=== PATIENT | female | born 1960 | race Caucasian/White ===

== ENCOUNTER 2024-12-18 06:52 | Day surgery (SDC) | payer OTHER, SELFPAY ==
[2024-12-12 08:19] VITALS: BMI 29.7
[2024-12-12 08:35] VITALS: BMI 29.7
--- NOTE | 2024-12-15 09:34 | HO.ANESPROP2 ---
HPI - Anesthesia Eval Consult details Narrative: 64yo F for Right Cataract Extraction IOL Insertion No previous cataract on record [facility] [place] Past Medical History Medical History (Updated 12/12/24 @ 08:35 by Nicole Flores RN) Lung mass Neuropathy Pre-diabetes Hypothyroid Elevated cholesterol Surgical History Surgical History (Updated 12/12/24 @ 08:17 by Nicloe Flores RN) Hx of arthroscopic knee surgery Hx of rotator cuff surgery Hx of unilateral oophorectomy Hx of excision of mass Hx of thyroidectomy Hx of bilateral salpingectomy Social History Social History (Updated 12/12/24 @ 08:18 by Nicole Flores RN) Are you a primary nonfarm animal caretaker to a significant other at home: No Do you presently have visiting nurse or other home services: No Patient Tobacco Use Status: Former Tobacco user Tobacco use type: Cigarette Use of substances other than those prescribed or required for medical reasons: No Have you been hit, kicked, punched, or otherwise hurt by someone within the past year? If so, by whom?: No Spiritual Healthcare Practices: no [facility] Healthcare Practices: no Cultural Healthcare Practices: no Are you DNR?: No Advance Directives Information Provided: Yes (as above noted) Advance Directives on File: No FDLMP: n/a Meds Allergies Allergy/AdvReac Type Severity Reaction Status Date / Time environmental allergies Allergy Unknown Unknown Verified 12/12/24 08:18 Home Medications ?Medication ?Instructions ?Recorded ?Confirmed ?Last Taken ?Type celecoxib 200 mg capsule 200 mg PO BID PRN Pain 12/12/24 12/12/24 Unknown History cholecalciferol (vitamin D3) 25 25 mcg PO DAILY 12/12/24 12/12/24 Unknown History mcg (1,000 unit) tablet (Vitamin D3) ezetimibe 10 mg tablet (Zetia) 10 mg PO QPM 12/12/24 12/12/24 Unknown History levothyroxine 125 mcg tablet 125 mcg PO QAM 12/12/24 12/12/24 Unknown History valacyclovir 500 mg tablet 500 mg PO DAILY PRN Cold Sores 12/12/24 12/12/24 Unknown History valsartan 80 1 tab PO QPM 12/12/24 12/12/24 Unknown History mg-hydrochlorothiazide 12.5 mg tablet Exam Height,Weight and Vital Signs: Height 5 ft 2.6 in Weight 75 kg Assessment and Plan Assessment Anesthesia Assessment: Chart Reviewed
[2024-12-18] MEDS: Ketorolac Tromethamine 0.5% Op 5 ML DROPS 1 DROP EYE-RIGHT ×3 (07:16→07:25)
[2024-12-18] MEDS: Lactated Ringers 500 ML 50 ML IV (07:16)
[2024-12-18] MEDS: Tetracaine HCl/PF 0.5% Oph Sol 4 ML DROPS 1 DROP EYE-RIGHT (07:16)
[2024-12-18] MEDS: Phenylephrine HCL 2.5% Oph SoL 2 ML BOTTLE 1 DROP EYE-RIGHT ×3 (07:17→07:25)
[2024-12-18] MEDS: Tropicamide 1 % Ophth Sol 3 ML BTL 1 DROP EYE-RIGHT ×3 (07:17→07:25)
[2024-12-18] MEDS: Cyclopentolate 1 % Ophth Sol 2 ML DRPBTL 1 DROP EYE-RIGHT ×3 (07:17→07:25)
[2024-12-18 07:28] VITALS: BP 134/73; PULSE 85; RESP 18; TEMP 36.7; O2SAT 98
--- NOTE | 2024-12-18 07:55 | P.CONAN_ITS ---
[facility] Past Medical History Medical History Lung mass Neuropathy Pre-diabetes Hypothyroid Elevated cholesterol Functional capacity: independent ambulation Patient : No Family History Family history of problems with anesthesia: No Surgical History Surgical History Hx of arthroscopic knee surgery Hx of rotator cuff surgery Hx of unilateral oophorectomy Hx of excision of mass Hx of thyroidectomy Hx of bilateral salpingectomy History of Problems with Anesthesia: No Social History Social History Are you a primary healthcare advisory services manager to a significant other at home: No Do you presently have visiting nurse or other home services: No Patient Tobacco Use Status: Former Tobacco user Tobacco use type: Cigarette Use of substances other than those prescribed or required for medical reasons: No Have you been hit, kicked, punched, or otherwise hurt by someone within the past year? If so, by whom?: No Spiritual Healthcare Practices: no [facility] Practices: no Cultural Healthcare Practices: no Are you DNR?: No Advance Directives Information Provided: Yes (as above noted) Advance Directives on File: No FDLMP: n/a Meds Allergies Allergy/AdvReac Type Severity Reaction Status Date / Time environmental allergies Allergy Unknown Unknown Verified 12/18/24 07:30 Active Medications: Current Medications Lactated Ringer's (Lr) 500 mls @ 50 mls/hr IV .Q10H KIRIT Stop: 12/18/24 16:59 Last Admin: 12/18/24 07:16 Dose: 50 mls/hr Povidone Iodine (Povidone Iodine 5 % Ophth Soln 30 Ml Bottle) 1 appl EYE-RIGHT PREOP PRN PRN Reason: Pre-Op Surgical Implant Prophy Home Medications ?Medication ?Instructions ?Recorded ?Confirmed ?Last Taken ?Type celecoxib 200 mg capsule 200 mg PO BID PRN Pain 12/12/24 12/12/24 Unknown History cholecalciferol (vitamin D3) 25 25 mcg PO DAILY 12/12/24 12/12/24 Unknown History mcg (1,000 unit) tablet (Vitamin D3) ezetimibe 10 mg tablet (Zetia) 10 mg PO QPM 12/12/24 12/12/24 Unknown History levothyroxine 125 mcg tablet 125 mcg PO QAM 12/12/24 12/12/24 12/18/24 History valacyclovir 500 mg tablet 500 mg PO DAILY PRN Cold Sores 12/12/24 12/12/24 Unknown History valsartan 80 1 tab PO QPM 12/12/24 12/12/24 Unknown History mg-hydrochlorothiazide 12.5 mg tablet Exam Height,Weight and Vital Signs: Height 5 ft 2.6 in Weight 75 kg Last Vital Signs Temp 98.1 F 12/18/24 07:28 Pulse 85 12/18/24 07:28 Resp 18 12/18/24 07:28 BP 134/73 12/18/24 07:28 Pulse Ox 98 12/18/24 07:28 O2 Del Method Room Air 12/18/24 07:28 Airway Mallampati Class: II TM Dist: >3cm Neck ROM: Full Heart: RRR Lungs: CTA Assessment and Plan Assessment Anesthesia Assessment: Anesthesia Plan Discussed and Smoking Cess. Discussed Final Anesthetic Review Family History of Problems with Anesthesia: No History of Problems with Anesthesia: No NPO: Yes ASA Class: II Final Preanesthetic Review: Meds/Allgs Chart Reviewed, Consent Obtained/Reviewed and Anes Risks/Benef Reviewed Patient Risk: Low Procedure Risk: Low Anesthetic Plan Anesthetic Plan: MAC: Disposition: Standard PACU
--- NOTE | 2024-12-18 08:06 | MHC.SHP ---
Pre-Procedural Eval Section A - 24 Hr Update-Section A only Date of Service: 12/18/24 The patient is an INPATIENT: No Changes since office visit: No Cold of Flu in the past 2 weeks, No New Medical Problems, No Changes in Medication and No Patient answered all questions The patient has been examined within 24 hours of the surgical procedure. The History & Physical has been completed within 30 days and I have reviewed it.: Yes Section B - Complete if H&P > 30 days Chief Complaint: Age-related nuclear cataract, right eye Allergies: Allergies Allergy/AdvReac Type Severity Reaction Status Date / Time environmental allergies Allergy Unknown Unknown Verified 12/18/24 07:30 Plan Diagnosis/Plan: Unchanged I have reviewed the history and physical and performed a pertinent physical examination on my patient. No changes have occurred unless specified. Time Spent With Patient Time: Total time managing care of this patient today ____ minutes.
--- NOTE | 2024-12-18 08:07 | P.PCNO_ITS ---
Ophthalmology Procedure Procedure Date of Service: 12/18/24 Ophthalmology Viscoelastic: Healon Duet Dual Pack Pro Ophthalmology Lenses: IOL Acrysof MP - MA60AC (18.5) Procedure Notes: PREOPERATIVE DIAGNOSIS: Decreased visual acuity right eye secondary to cataract POSTOPERATIVE DIAGNOSIS: Same PROCEDURE: Right cataract extraction with intraocular lens insertion SURGEON: Kwabena Pinedo M.D. ANESTHESIA: Topical/MAC ESTIMATED BLOOD LOSS: None COMPLICATIONS: None After obtaining informed consent, the patient was brought to the operating room suite and placed in the supine position. After adequate sedation per anesthesia, topical drops of Tetracaine were given to the right eye. The eye was then prepped and draped in the usual sterile fashion. The operating room microscope was then positioned over the operative eye and a lid speculum placed. A paracentesis was created. Viscoelastic was then instilled into the anterior chamber. A three plane incision was then created temporally, utilizing a 2.85 mm keratome. Capsulotomy forceps were then utilized to create a circular tear capsulotomy. Hydrodissection and hydrodelineation were carried out until adequate mobilization of the nucleus occurred. Phacoemulsification was then utilized to remove the dense central nu cleus followed by removal of the cortical material utilizing the automated aspiration irrigation unit. Viscoelastic was instilled into the posterior capsular bag followed by placement of a posterior chamber intraocular lens without difficulty. The residual Viscoelastic was then removed utilizing the automated IA machine. The wound was checked and found to be watertight. The patient tolerated the procedure well and the lid speculum was removed. Intracameral injection of Vigamox 0.1 mL followed by a subtenon injection of Kenalog-40 0.2 mL were administered. The patient will be seen in the a.m.
[2024-12-18 08:31] VITALS: BP 120/72; PULSE 74; RESP 16; TEMP 36.2; O2SAT 100
[2024-12-18 08:39] VITALS: BP 130/72; PULSE 72; RESP 16; TEMP 36.2; O2SAT 100
--- NOTE | 2024-12-18 09:13 | HO.POSTANES ---
Post Anesthesia Evaluation Post Anesthesia Evaluation Date of Service: 12/18/24 Vital Signs: Vital Signs Temp Pulse Resp BP Pulse Ox O2 Del Method 12/18/24 08:39 97.2 F 72 16 130/72 100 Room Air 12/18/24 08:31 97.2 F 74 16 120/72 100 Room Air 12/18/24 07:28 98.1 F 85 18 134/73 98 Room Air Anesthesia: Monitored Mental Status: Awake Pain Control: Satisfactory Nausea/Vomiting: None Hydration: Adequate Anesthesia-Related Issues: No Anes. Related Issues
== END 2024-12-18 08:49 | disposition home or self-care (01) ==
PROVIDERS: PCP Nurse Practitioner Family; Visit Provider Ophthalmology
PROC: (CPT 66985; principal; 2024-12-18 08:30)
DX: H25.11 Age-related nuclear cataract, right eye (principal); H52.4 Presbyopia; H18.413 Arcus senilis, bilateral; H43.393 Other vitreous opacities, bilateral; I10 Essential (primary) hypertension; E78.00 Pure hypercholesterolemia, unspecified; E05.00 Thyrotoxicosis with diffuse goiter without thyrotoxic crisis or storm; E03.9 Hypothyroidism, unspecified; R73.03 Prediabetes; E55.9 Vitamin D deficiency, unspecified; Z79.899 Other long term (current) drug therapy; Z98.890 Other specified postprocedural states
CPT/HCPCS: 66984; J2250; J3301; V2630

== ENCOUNTER 2025-01-01 06:37 | Day surgery (SDC) | payer OTHER, SELFPAY ==
[2024-12-12 08:38] VITALS: BMI 29.7
[2025-01-01 07:06] VITALS: BP 118/70; PULSE 77; RESP 16; TEMP 36.2; O2SAT 99
[2025-01-01] MEDS: Tetracaine HCl/PF 0.5% Oph Sol 4 ML DROPS 1 DROP EYE-LEFT (07:11)
[2025-01-01] MEDS: Cyclopentolate 1 % Ophth Sol 2 ML DRPBTL 1 DROP EYE-LEFT ×3 (07:13→07:19)
[2025-01-01] MEDS: Tropicamide 1 % Ophth Sol 3 ML BTL 1 DROP EYE-LEFT ×3 (07:13→07:20)
[2025-01-01] MEDS: Ketorolac Tromethamine 0.5% Op 5 ML DROPS 1 DROP EYE-LEFT ×3 (07:14→07:20)
[2025-01-01] MEDS: Phenylephrine HCL 2.5% Oph SoL 2 ML BOTTLE 1 DROP EYE-LEFT ×3 (07:15→07:21)
--- NOTE | 2025-01-01 07:18 | HO.ANESPROP2 ---
[facility] Past Medical History Medical History Lung mass Neuropathy Pre-diabetes Hypothyroid Elevated cholesterol Family History Family history of problems with anesthesia: No Surgical History Surgical History Hx of arthroscopic knee surgery Hx of rotator cuff surgery Hx of unilateral oophorectomy Hx of excision of mass Hx of thyroidectomy Hx of bilateral salpingectomy History of Problems with Anesthesia: No Social History Social History Are you a primary health care specialist to a significant other at home: No Do you presently have visiting nurse or other home services: No Patient Tobacco Use Status: Former Tobacco user Tobacco use type: Cigarette Use of substances other than those prescribed or required for medical reasons: No Have you been hit, kicked, punched, or otherwise hurt by someone within the past year? If so, by whom?: No Spiritual Healthcare Practices: no Denominational Healthcare Practices: no Cultural Healthcare Practices: no Are you DNR?: No Advance Directives Information Provided: Yes (as above noted) Advance Directives on File: No FDLMP: n/a Meds Allergies Allergy/AdvReac Type Severity Reaction Status Date / Time environmental allergies Allergy Unknown Unknown Verified 12/18/24 07:30 Active Medications: Current Medications Naloxone HCl (Naloxone Hcl 0.4 Mg/Ml Vial) 0.04 mg IVPUSH Q5M PRN PRN Reason: Excessive sedation or RR < 8 Povidone Iodine (Povidone Iodine 5 % Ophth Soln 30 Ml Bottle) 1 appl EYE-LEFT PREOP PRN PRN Reason: Pre-Op Surgical Implant Prophy Home Medications ?Medication ?Instructions ?Recorded ?Confirmed ?Last Taken ?Type celecoxib 200 mg capsule 200 mg PO BID PRN Pain 12/12/24 12/12/24 Unknown History cholecalciferol (vitamin D3) 25 25 mcg PO DAILY 12/12/24 12/12/24 Unknown History mcg (1,000 unit) tablet (Vitamin D3) ezetimibe 10 mg tablet (Zetia) 10 mg PO QPM 12/12/24 12/12/24 Unknown History levothyroxine 125 mcg tablet 125 mcg PO QAM 12/12/24 12/12/2412/18/25 History valacyclovir 500 mg tablet 500 mg PO DAILY PRN Cold Sores 12/12/24 12/12/24 Unknown History valsartan 80 1 tab PO QPM 12/12/24 12/12/24 Unknown History mg-hydrochlorothiazide 12.5 mg tablet Exam Height,Weight and Vital Signs: Height 5 ft 2.6 in Weight 75 kg Last Vital Signs Temp 97.2 F 01/01/25 07:06 Pulse 77 01/01/25 07:06 Resp 16 01/01/25 07:06 BP 118/70 01/01/25 07:06 Pulse Ox 99 01/01/25 07:06 O2 Del Method Room Air 01/01/25 07:06 Airway Mallampati Class: II TM Dist: >3cm Neck ROM: Full Heart: rrr Lungs: cta Assessment and Plan Assessment Anesthesia Assessment: Anesthesia Plan Discussed and Chart Reviewed Final Anesthetic Review Family History of Problems with Anesthesia: No History of Problems with Anesthesia: No NPO: Yes ASA Class: II Final Preanesthetic Review: No Changes in Pt Med Stat, Meds/Allgs Chart Reviewed and Consent Obtained/Reviewed Patient Risk: Low Procedure Risk: Low Anesthetic Plan Anesthetic Plan: MAC: Disposition: Standard PACU
[2025-01-01] MEDS: Lactated Ringers 500 ML 50 ML IV (07:25)
--- NOTE | 2025-01-01 08:17 | MHC.SHP ---
Pre-Procedural Eval Section A - 24 Hr Update-Section A only Date of Service: 01/01/25 The patient is an INPATIENT: No Changes since office visit: No Cold of Flu in the past 2 weeks, No New Medical Problems, No Changes in Medication and No Patient answered all questions The patient has been examined within 24 hours of the surgical procedure. The History & Physical has been completed within 30 days and I have reviewed it.: Yes Section B - Complete if H&P > 30 days Chief Complaint: Age-related nuclear cataract, left eye Allergies: Allergies Allergy/AdvReac Type Severity Reaction Status Date / Time environmental allergies Allergy Unknown Unknown Verified 12/18/24 07:30 Plan Diagnosis/Plan: Unchanged I have reviewed the history and physical and performed a pertinent physical examination on my patient. No changes have occurred unless specified. Time Spent With Patient Time: Total time managing care of this patient today ____ minutes.
--- NOTE | 2025-01-01 08:18 | HO.PNOPHT ---
Ophthalmology Procedure Procedure Date of Service: 01/01/25 Ophthalmology Viscoelastic: Healon Duet Dual Pack Pro Ophthalmology Lenses: IOL Acrysof MP - MA60AC (18.5) Procedure Notes: PREOPERATIVE DIAGNOSIS: Decreased visual acuity left eye secondary to cataract POSTOPERATIVE DIAGNOSIS: Same PROCEDURE: Left cataract extraction with intraocular lens insertion SURGEON: Kwabena Pinedo M.D. ANESTHESIA: Topical/MAC ESTIMATED BLOOD LOSS: None COMPLICATIONS: None After obtaining informed consent, the patient was brought to the operation room suite and placed in the supine position. After adequate sedation per anesthesia, topical drops of Tetracaine were given to the left eye. The eye was then prepped and draped in the usual sterile fashion. The operating room microscope was then positioned over the operative eye and a lid speculum placed. A paracentesis was created. Viscoelastic was then instilled into the anterior chamber. A three plane incision was then created temporally, utilizing a 2.85 mm keratome. Capsulotomy forceps were then utilized to create a circular tear capsulotomy. Hydrodissection and hydrodelineation were carried out until adequate mobilization of the nucleus occurred. Phacoemulsification was then utilized to remove the dense central nucleus followed by removal of the cortical material utilizing the automated aspiration irrigation unit. Viscoat elastic was instilled into the posterior capsular bag followed by placement of a posterior chamber intraocular lens without difficulty. The residual Viscoat elastic was then removed utilizing the automated IA machine. The wound was check and found to be watertight. The patient tolerated the procedure well and the lid speculum was removed. Intracameral injection of Vigamox 0.1 mL followed by a subtenon injection of Kenalog-40 0.2 mL were administered. The patient will be seen in the a.m.
[2025-01-01 08:41] VITALS: BP 114/61; PULSE 75; RESP 16; TEMP 36.2; O2SAT 100
== END 2025-01-01 08:50 | disposition home or self-care (01) ==
PROVIDERS: PCP Nurse Practitioner Family; Visit Provider Ophthalmology
PROC: (CPT 66985; principal; 2025-01-01 08:30)
DX: H25.12 Age-related nuclear cataract, left eye (principal); H52.4 Presbyopia; H18.413 Arcus senilis, bilateral; H43.393 Other vitreous opacities, bilateral; I10 Essential (primary) hypertension; E78.00 Pure hypercholesterolemia, unspecified; R73.03 Prediabetes; R91.8 Other nonspecific abnormal finding of lung field; E05.00 Thyrotoxicosis with diffuse goiter without thyrotoxic crisis or storm; E03.9 Hypothyroidism, unspecified; G57.90 Unspecified mononeuropathy of unspecified lower limb; G51.39 Clonic hemifacial spasm, unspecified; E55.9 Vitamin D deficiency, unspecified; Z79.899 Other long term (current) drug therapy; Z98.890 Other specified postprocedural states; Z87.891 Personal history of nicotine dependence
CPT/HCPCS: 66984; J2250; J3301; V2630

== ENCOUNTER 2025-05-28 09:43 | Outpatient (AMB) | payer OTHER, SELFPAY ==
--- NOTE | 2025-05-28 09:52 | A.OFFVIS_ITS ---
Vital Signs 05/28/25 10:07 05/28/25 10:07 BP 135/80 152/81 H Position Sitting Standing Pulse 89 97 Intake Visit Reasons: 6m Allergies environmental allergies Allergy (Unknown, Verified 05/28/25 09:55) Unknown lisinopril Allergy (Unknown, Verified 05/28/25 09:55) Unknown Medication List - Last Reconciled 05/28/25 by Whit Lobo CNP celecoxib 200 mg PO BID PRN cholecalciferol (vitamin D3) (Vitamin D3) 25 mcg PO DAILY ezetimibe (Zetia) 10 mg PO QPM levothyroxine 125 mcg PO QAM magnesium glycinate mg PO valacyclovir 500 mg PO DAILY PRN valsartan-hydrochlorothiazide 80-12.5 mg 1 tab PO QPM HPI Comments Details: A few weeks ago, she woke up during the night to use the bathroom and passed out, hitting the back of her head on dresser. She does not remember any warning or feeling of dizziness before passing out. She went to [place] [facility] where she had CT scan done that was apparently okay. She went back a few days later for headache and nausea, and was told she had a concussion. Headaches are better, but she was having some ongoing lightheadedness. No further falls or episodes of passing out. She recalls an episode where she passed out after waking up during the night to use the bathroom about 3 years ago, but fell forward that time. Sleep was not so good, waking every few hours to use the bathroom. She was taking valsartan-HCTZ around noontime. No episodes of left sided facial twitching in the last 6 months. She had 2 brief episodes of left sided facial twitches that happened when talking or laughing between 07/2024 - 11/2024. She had cough with lisinopril-HCTZ and was switched to valsartan-HCTZ, cough resolved. Taking celecoxib occasionally for arthritis pain. She?developed sudden onset of twitching in the left eye in summer 2023 which increased over 3 days to involve the whole left face which would continue twitching almost constantly and she felt a little dizzy. It has gotten a lot better after the first 3 weeks when it was happening every day or night. Now it occurs only occasionally and briefly. She had an MRI of the brain which shows a prominent to blood vessel adjacent to the left facial nerve entry zone. She has minimal microvascular changes and periventricular frontal white matter. [facility] Medical History Lung mass Neuropathy Pre-diabetes Hypothyroid Elevated cholesterol Surgical History Hx of arthroscopic knee surgery Hx of rotator cuff surgery Hx of unilateral oophorectomy Hx of excision of mass Hx of thyroidectomy Hx of bilateral salpingectomy Social History Are you a primary patient care assistant to a significant other at home: No Do you presently have visiting nurse or other home services: No Patient Tobacco Use Status: Former Tobacco user Tobacco use type: Cigarette Review of Systems Const Denies chills, Denies daytime sleepiness, Reports difficulty sleeping, Denies fatigue, Denies fever(s), Denies frequent falls, Denies headache(s), Denies increased appetite, Denies poor appetite, Denies snoring, Denies weakness, Denies weight gain and Denies weight loss Eyes Denies loss of vision ENT Denies vertigo, Denies dizziness, Denies headache(s) and Reports neck pain Card Denies chest pain at rest, Denies chest pain with activity, Denies syncope, Denies leg edema, Denies palpitations, Denies dyspnea and Denies dyspnea on exertion Resp Denies cough, Denies dyspnea, Denies dyspnea on exertion and Denies snoring GI Denies abdominal pain, Denies constipation, Denies heartburn, Denies diarrhea and Denies nausea Denies urinary frequency, Denies urinary incontinence and Denies urinary urgency Musc Denies abnormal gait, Reports back pain, Reports myalgias, Reports arthralgias, Reports neck pain, Denies numbness and Denies tingling Neuro Denies abnormal gait, Denies vertigo, Denies dizziness, Denies syncope, Denies frequent falls, Denies headache(s), Denies lack of coordination, Denies loss of vision, Denies memory loss, Denies numbness, Denies Other visual disturbances, Denies restless legs, Denies seizure-like activity, Denies tingling, Denies paresthesias, Denies tremor(s), Denies weakness and Reports other (left sided facial twitching) Psych Denies anxiety, Denies depression, Denies auditory hallucinations, Denies memory loss and Denies visual hallucinations Endo Denies fatigue and Denies palpitations Physical Exam Const Other: General Appearance:? normal, in no acute distress. Heart:? S1, S2 normal, no murmurs. Lungs:? clear anteriorly and posteriorly. Musculoskeletal:? normal. Extremities:? no edema. Psych:? alert, oriented, cognitive function intact, cooperative with exam. Neuro Other: Abnormal Neurological Findings:?none.?Unable to trigger left facial twitching today. Mental Status: alert and oriented X 3. Normal attention, orientation, memory, and affect. Cranial Nerves: Pupils are equal, round, and reactive to light. External ocular muscles are intact. Visual geronimo are full, no ptosis. Face is symmetrical, no facial weakness or droop. Facial sensations are normal. Tongue protrudes in midline. Palate elevates symmetrically. Shoulder shrugging is normal Motor Examination: Normal muscle tone, bulk and strength. No atrophy or fasci culations. No drift of the extended upper extremities. DTR 2+. Plantars are flexor. Sensory Exam: Normal light touch, temperature, pinprick, vibration, and joint- position sensations. Rhomberg sign is absent. Coordination: No ataxia. No titubation. Gait Exam: Within normal limits. Cerebellar Signs: [id number] is okay. Extrapyramidal System: No tremor, rigidity with normal facial expressions. No bradykinesia. No bradyphrenia. Normal arm swing and posture. No propulsion or retropulsion. Speech: Normal. Results Reviewed Results Reviewed: MRI of the brain which shows a prominent to blood vessel adjacent to the left facial nerve entry zone. She has minimal microvascular changes and periventricular frontal white matter. Assessment & Plan Assessment & Plan (1) Syncope: Code(s): R55 - Syncope and collapse Category: Medical Qualifiers: Syncope type: unspecified Qualified Code(s): R55 - Syncope and collapse Plan: Will request records from [facility]. EEG ordered. 48hr Holter ordered. Follow up after testing or sooner as needed. (2) Hemifacial spasm: Code(s): G51.39 - Clonic hemifacial spasm, unspecified Category: Medical Qualifiers: Laterality: left Qualified Code(s): G51.32 - Clonic hemifacial spasm, left (3) Hypertension: Code(s): I10 - Essential (primary) hypertension Category: Medical Qualifiers: Hypertension type: unspecified Qualified Code(s): I10 - Essential (primary) hypertension Plan: Continue valsartan-HCTZ 80-12.5mg 1 tablet daily. She was taking this medication around noon and was waking few times during the night to use the bathroom. Recommend trying to take medication earlier in the day to see if that would help reduce nocturia. Keep log of home BP. Plan Meds tried: lisinopril-HCTZ (cough) Orders: Orders ECG holter monitor 48 hour Today R55 - Syncope and collapse EEG Routine Today R55 - Syncope and collapse Coding Level of Care Code Est Pt Level 4 (93601) Diagnoses Syncope, unspecified syncope type R55 Syncope type: unspecified Hemifacial spasm of left side of face G51.32 Laterality: left Hypertension, unspecified type I10 Hypertension type: unspecified
[2025-05-28 10:07] VITALS: BP 135/80; BP 152/81; PULSE 89; PULSE 97
== END 2025-05-28 10:23 | disposition home or self-care (01) ==
LOC: HO.HSM 09:43
PROVIDERS: PCP Nurse Practitioner Family; Referring Provider Family Medicine; Visit Provider Registered Nurse
DX: R55 Syncope and collapse (principal); G51.32 Clonic hemifacial spasm, left; I10 Essential (primary) hypertension
CPT/HCPCS: 99214

== ENCOUNTER 2025-07-02 10:23 | Outpatient (REF) | payer OTHER, SELFPAY ==
--- NOTE | 2025-07-02 11:47 | EEG_ITS ---
History: Lung mass Neuropathy Pre-diabetes Hypothyroid Elevated cholesterol A few weeks ago, she woke up during the night to use the bathroom and passed out, hitting the back of her head on dresser. She does not remember any warning or feeling of dizziness before passing out. She went to [place] [facility] where she had CT scan done that was apparently okay. She went back a few days later for headache and nausea, and was told she had a concussion. Headaches are better, but she was having some ongoing lightheadedness. Medication: celecoxib 200 mg PO BID PRN cholecalciferol (vitamin D3) (Vitamin D3) 25 mcg PO DAILY ezetimibe (Zetia) 10 mg PO QPM levothyroxine 125 mcg PO QAM magnesium glycinate mg PO valacyclovir 500 mg PO DAILY PRN valsartan-hydrochlorothiazide 80-12.5 mg 1 tab PO QPM Technical Description Photic Stimulation: Yes Hyperventilation: Yes Behavioral State: Cooperative/pleasant State of Consciousness: Awake Skull Defect: None Sedation: None Handedness: Right Duration: 28:47 Director Of Speech Pathology Comments: Last Meal: Time / date of last symptom: Description: The waking background activity consists of a well-defined 9 hertz posterior alpha frequency that is seen symmetrically and attenuates well with eye opening while low-voltage fast frequencies predominate anteriorly. Photic stimulation is without activation. Hyperventilation produces no change. No focal, lateralizing or paroxysmal discharges seen. Impression: This waking EEG is within normal limits [facility]
== END 2025-07-02 10:24 | disposition home or self-care (01) ==
LOC: HO.NEURO 10:23
PROVIDERS: PCP Nurse Practitioner Family; Visit Provider Registered Nurse
DX: R55 Syncope and collapse (principal)
CPT/HCPCS: 93225; 95816

== ENCOUNTER → 2025-07-02 11:47 | Outpatient (BNV) | payer OTHER, SELFPAY | PROVIDERS: PCP Nurse Practitioner Family; Visit Provider Psychiatry & Neurology Neurology | DX: R55 Syncope and collapse (principal) | CPT/HCPCS: 95816 ==

== ENCOUNTER → 2025-07-02 11:48 | Outpatient (BNV) | payer OTHER, SELFPAY | PROVIDERS: PCP Nurse Practitioner Family; Visit Provider Internal Medicine Cardiovascular Disease | DX: R00.0 Tachycardia, unspecified (principal) | CPT/HCPCS: 93227 ==